=== PATIENT | female | born 1965 | race Caucasian/White ===

== ENCOUNTER 2018-02-04 15:40 | Emergency (ER) | payer MEDICAID ==
[~2018-02-04] VITALS: Ht 167.6 cm; Wt 100.0 kg
[~2018-02-04 15:40] MED LIST: ALBU8HFA PO; ASPI-1264 PO; HUM7525 SQ; INSU100V12 SQ; NORCO10T PO; ONDA4TAB6 PO; VAL5T PO; ZOL50T PO
[2018-02-04 15:43] VITALS: BP 157/78
== END 2018-02-04 17:01 | disposition home or self-care (01) ==
LOC: ER 15:40
DX: M54.5 Low back pain (principal); E11.42 Type 2 diabetes mellitus with diabetic polyneuropathy; G89.29 Other chronic pain; F17.200 Nicotine dependence, unspecified, uncomplicated; Z59.0 Homelessness; Z88.5 Allergy status to narcotic agent; Z88.2 Allergy status to sulfonamides; Z88.8 Allergy status to other drugs, medicaments and biological substances; Z79.82 Long term (current) use of aspirin; Z79.4 Long term (current) use of insulin; Z79.899 Other long term (current) drug therapy
CPT/HCPCS: 99281

== ENCOUNTER 2022-07-07 16:25 | Emergency (ER) | payer MEDICAID ==
[~2022-07-07] VITALS: Ht 167.6 cm; Wt 98.2 kg
[~2022-07-07 16:25] MED LIST changes: +DIAZ5TAB22 PO; +SERT-153 PO; -VAL5T PO; -ZOL50T PO
[2022-07-07 17:17] VITALS: BP 194/97
== END 2022-07-07 18:35 | disposition home or self-care (01) ==
LOC: ER 16:26
DX: E11.319 Type 2 diabetes mellitus with unspecified diabetic retinopathy without macular edema (principal); H53.8 Other visual disturbances; I10 Essential (primary) hypertension; J44.9 Chronic obstructive pulmonary disease, unspecified; G89.29 Other chronic pain; F17.200 Nicotine dependence, unspecified, uncomplicated; E11.40 Type 2 diabetes mellitus with diabetic neuropathy, unspecified; Z87.01 Personal history of pneumonia (recurrent); Z87.11 Personal history of peptic ulcer disease; Z98.891 History of uterine scar from previous surgery; Z59.00 Homelessness unspecified; Z88.2 Allergy status to sulfonamides; Z88.8 Allergy status to other drugs, medicaments and biological substances; Z79.4 Long term (current) use of insulin; Z79.899 Other long term (current) drug therapy
CPT/HCPCS: 99282

== ENCOUNTER 2022-08-30 11:19 | Emergency (ER) | payer MEDICAID ==
[2022-08-30] MEDS ORDERED: normal saline 1000ml 1,000 ML IV ONE (12:00)
[2022-08-30 12:23] LABS: BASOPHILS # (AUTO) 0.2 X10'3 (0-0.2); BASOPHILS % (AUTO) 1.5 % (0-1); EOSINOPHILS # (AUTO) 0.2 X10'3 (0-0.9); EOSINOPHILS % (AUTO) 1.9 % (0-6); HEMATOCRIT 46.4 % (35.0-45.0); HEMOGLOBIN 15.6 g/dl (12.0-16.0); LYMPHOCYTES # (AUTO) 1.9 X10'3 (1.1-4.8); LYMPHOCYTES % (AUTO) 18.2 % (21-51); MEAN CORPUSCULAR HEMOGLOBIN 28.7 PG (27.0-31.0); MEAN CORPUSCULAR HGB CONC 33.7 g/dL (33.0-36.5); MEAN CORPUSCULAR VOLUME 85.1 FL (78-98); MEAN PLATELET VOLUME 7.9 FL (7.4-10.4); MONOCYTES # (AUTO) 0.6 X10'3 (0-0.9); MONOCYTES % (AUTO) 6.1 % (2-12); NEUTROPHILS # (AUTO) 7.5 X10'3 (1.8-7.7); NEUTROPHILS % (AUTO) 72.3 % (42-75); PLATELET COUNT 233 X10'3 (140-440); RED BLOOD COUNT 5.44 X10'6 (4.20-5.60); RED CELL DISTRIBUTION WIDTH 13.6 % (11.5-14.5); WHITE BLOOD COUNT 10.4 X10'3 (4.5-11.0)
[2022-08-30 12:37] LABS: ALANINE AMINOTRANSFERASE 22 U/L (12-78); ALBUMIN 3.3 G/DL (3.4-5.0); ALBUMIN/GLOBULIN RATIO 0.8 (1.1-1.5); ALKALINE PHOSPHATASE 172 IU/L (46-116); ANION GAP 4 (8-16); ASPARTATE AMINO TRANSFERASE 18 U/L (10-37); BILIRUBIN,TOTAL 0.5 MG/DL (0.1-1.0); BLOOD UREA NITROGEN 21 MG/DL (7-18); BUN/CREATININE RATIO 30.9 (6.6-38.0); CALCIUM 9.5 MG/DL (8.5-10.1); CHLORIDE 100 MMOL/L (99-107); CREATININE 0.68 MG/DL (0.40-0.90); GLUCOSE 339 MG/DL (70-104); POTASSIUM 4.2 MMOL/L (3.5-5.1); SODIUM 136 MMOL/L (135-145); TOTAL CARBON DIOXIDE 31.7 MMOL/L (24-32); TOTAL PROTEIN 7.2 G/DL (6.4-8.2); eGFR 89 ML/MIN
[2022-08-30] MEDS ORDERED: insulin regular, human 10 units/0.1 ml syringe SQ ONE (12:40)
[2022-08-30] MEDS ORDERED: NOVLG SQ (12:43)
[2022-08-30] MEDS ORDERED: INSU100V11 SQ (13:50)
[2022-08-30 13:53] VITALS: BP 188/99
== END 2022-08-30 13:55 | disposition home or self-care (01) ==
LOC: ER 11:19
DX: E11.65 Type 2 diabetes mellitus with hyperglycemia (principal); J44.9 Chronic obstructive pulmonary disease, unspecified; I10 Essential (primary) hypertension; G89.29 Other chronic pain; F31.9 Bipolar disorder, unspecified; Z56.0 Unemployment, unspecified; Z98.890 Other specified postprocedural states; Z88.2 Allergy status to sulfonamides; Z88.5 Allergy status to narcotic agent; Z79.899 Other long term (current) drug therapy; Z79.82 Long term (current) use of aspirin; Z88.8 Allergy status to other drugs, medicaments and biological substances; Z79.84 Long term (current) use of oral hypoglycemic drugs
CPT/HCPCS: 36415; 80053; 82948; 85025; 96360; 96372; 99283; J1815; J7030

== ENCOUNTER 2022-11-12 14:07 | Emergency (ER) | payer MEDICAID ==
[~2022-11-12] VITALS: Ht 167.6 cm; Wt 104.0 kg
[~2022-11-12 14:07] MED LIST changes: +INSU100V11 SQ; +NOVLG SQ
[2022-11-12 14:59] VITALS: BP 165/86
== END 2022-11-12 15:39 | disposition home or self-care (01) ==
LOC: ER 14:08
DX: S93.401A Sprain of unspecified ligament of right ankle, initial encounter (principal); I10 Essential (primary) hypertension; J44.9 Chronic obstructive pulmonary disease, unspecified; E11.9 Type 2 diabetes mellitus without complications; G89.29 Other chronic pain; F17.200 Nicotine dependence, unspecified, uncomplicated; Z59.00 Homelessness unspecified; Z88.2 Allergy status to sulfonamides; Z88.5 Allergy status to narcotic agent; W19.XXXA Unspecified fall, initial encounter; Y93.89 Activity, other specified; Y92.89 Other specified places as the place of occurrence of the external cause; Y99.8 Other external cause status
CPT/HCPCS: 29515; 73610; 99284; L1930; A6449

== ENCOUNTER 2023-09-23 13:39 | Emergency (ER) | payer MEDICAID ==
[~2023-09-23] VITALS: Ht 167.6 cm; Wt 113.0 kg
[2023-09-23] MEDS ORDERED: FLUC150T46 PO (16:31)
[2023-09-23 16:45] VITALS: BP 128/86; PULSE 90; RESP 18; TEMP 97.1; O2SAT 98
== END 2023-09-23 16:47 | disposition home or self-care (01) ==
LOC: ER 13:40
DX: B37.89 Other sites of candidiasis (principal); I10 Essential (primary) hypertension; J44.9 Chronic obstructive pulmonary disease, unspecified; E11.9 Type 2 diabetes mellitus without complications; F31.9 Bipolar disorder, unspecified; Z98.890 Other specified postprocedural states; Z88.8 Allergy status to other drugs, medicaments and biological substances; Z88.2 Allergy status to sulfonamides; Z88.5 Allergy status to narcotic agent; Z79.899 Other long term (current) drug therapy; Z79.82 Long term (current) use of aspirin
CPT/HCPCS: 99283

== ENCOUNTER 2024-02-19 15:42 | Emergency (ER) | payer MEDICAID ==
[~2024-02-19] VITALS: Ht 167.6 cm; Wt 100.9 kg
[2024-02-19 15:55] VITALS: BP 165/71; PULSE 67; TEMP 97.2; O2SAT 98
[2024-02-19 17:49] VITALS: RESP 16
[2024-02-19] MEDS: ketorolac trometh. 30mg/ml inj. IM ONE (17:49)
== END 2024-02-19 17:52 | disposition home or self-care (01) ==
LOC: ER 15:43
DX: S20.212A Contusion of left front wall of thorax, initial encounter (principal); I10 Essential (primary) hypertension; E11.9 Type 2 diabetes mellitus without complications; F41.9 Anxiety disorder, unspecified; F32.A Depression, unspecified; Z59.00 Homelessness unspecified; Z98.890 Other specified postprocedural states; Z88.8 Allergy status to other drugs, medicaments and biological substances; Z88.2 Allergy status to sulfonamides; Z79.899 Other long term (current) drug therapy; Z79.2 Long term (current) use of antibiotics; Z79.82 Long term (current) use of aspirin; Z79.4 Long term (current) use of insulin; W18.39XA Other fall on same level, initial encounter; Y93.89 Activity, other specified; Y92.89 Other specified places as the place of occurrence of the external cause; Y99.8 Other external cause status
CPT/HCPCS: 99284

== ENCOUNTER 2024-05-24 14:43 | Outpatient (CLI) | payer MEDICAID ==
[~2024-05-24] VITALS: Ht 170.2 cm; Wt 103.9 kg
[2024-05-24] MEDS: albuterol 2.5 MG/3 ML nebule NEB PRN (15:19)
[2024-05-24 15:25] VITALS: PULSE 78; RESP 14; O2SAT 93
[2024-05-24 15:36] VITALS: PULSE 75; RESP 16
== END 2024-05-24 23:59 | disposition home or self-care (01) ==
LOC: RT 14:43
PROVIDERS: ATTEND Physician Assistant
DX: J44.9 Chronic obstructive pulmonary disease, unspecified (principal)
CPT/HCPCS: 94060; 94729; 94760

== ENCOUNTER 2025-02-19 15:39 | Outpatient (CLI) | payer MEDICAID ==
--- NOTE | 2025-02-19 22:37 | RADIOLOGY REPORT ---
Clinical statement: STRAIN OF LEFT ACHILLES TENDON, INITIAL ENCOUNTER Study: MRI of the right ankle and hindfoot extremity. Ordering physician: SHERITA BOGGS Technique: Multiple pulse sequences in multiple imaging planes were obtained before and after IV con trast administration. Comparison: Prior radiographs of October 2022 There is significant tendinopathy in the Achilles achilles is grossly thickened 2 11 mm AP signals wi thin bones are normal. There is a large osteophyte also at the attachment of the plantar fascia of t he calcaneus there is focal thickening of the plantar fascia as well focally the fascia measures 5 mm in thickness near the attachment to the calcaneus. Signals within the Achilles are also normal. Is possible that the Achilles is avulsed from its attach ment to the calcaneus. IMPRESSION: Achilles is abnormal and may be avulsed and retracted from its attachment to the Achilles.There is al so focal thickening please see image 14 of the inversion recovery sagittal images Of the plantar fascia near its attachment to the calcaneus.
== END 2025-02-19 23:59 | disposition home or self-care (01) ==
LOC: MRI 15:39
PROVIDERS: ATTEND Family Medicine
DX: S86.001A Unspecified injury of right Achilles tendon, initial encounter (principal); X58.XXXA Exposure to other specified factors, initial encounter; Y93.89 Activity, other specified; Y92.89 Other specified places as the place of occurrence of the external cause; Y99.8 Other external cause status
CPT/HCPCS: 73721